=== PATIENT | male | born 1990 | race Caucasian/White ===

== ENCOUNTER 2018-09-30 02:51 | Emergency (ER) | payer MEDICAID ==
[~2018-09-30] VITALS: Ht 175.3 cm; Wt 117.5 kg
[2018-09-30 02:54] VITALS: Ht 175.3 cm; Wt 117.5 kg
[2018-09-30 06:43] VITALS: BP 127/81
== END 2018-09-30 08:34 | disposition home or self-care (01) ==
LOC: ED 02:51
DX: S62.306A Unspecified fracture of fifth metacarpal bone, right hand, initial encounter for closed fracture (principal); J45.909 Unspecified asthma, uncomplicated; G43.909 Migraine, unspecified, not intractable, without status migrainosus; Y04.8XXA Assault by other bodily force, initial encounter; Y93.89 Activity, other specified; Y92.89 Other specified places as the place of occurrence of the external cause; Y99.8 Other external cause status
CPT/HCPCS: J1885